=== PATIENT | female | born 1975 | race Caucasian/White ===

== ENCOUNTER 2022-12-19 05:08 | Emergency (ER) | payer BC ==
[~2022-12-19] VITALS: Ht 165.1 cm; Wt 107.5 kg
[~2022-12-19 05:08] MED LIST: BAYER CHEWABLE81 MG PO; HYDROCHLOROTH12.5 MG PO; K-TAB ER20 MEQ PO; METFORMIN HCL500 M2 PO; METOPROLOL SUCC50 MG PO; NEURONTIN400 MG PO; NORVASC10 MG PO; PROZAC20 MG PO; VITAMIN B COMP1 EAC1 PO
[2022-12-19] MEDS ORDERED: TIZANIDINE HCL2 MG PO (05:20)
[2022-12-19] MEDS ORDERED: TRULICITY0.75 MG/0. SQ (05:20)
[2022-12-19] MEDS ORDERED: PREDNISONE20 MG PO (06:25)
[2022-12-19 06:40] VITALS: BP 155/101
== END 2022-12-19 06:40 | disposition home or self-care (01) ==
LOC: ED 05:08
DX: G57.01 Lesion of sciatic nerve, right lower limb (principal); I10 Essential (primary) hypertension; E11.9 Type 2 diabetes mellitus without complications; Z79.82 Long term (current) use of aspirin; Z79.84 Long term (current) use of oral hypoglycemic drugs; Z79.899 Other long term (current) drug therapy
CPT/HCPCS: 20552; 99283-25; A9270; J1100